=== PATIENT | female | born 1955 | race American Indian/Alaskan Native ===

== ENCOUNTER 2018-04-14 18:12 | Emergency (ER) | payer MEDICARE, OTHER ==
[2018-04-14 18:19] VITALS: BP 100/63
--- NOTE | 2018-04-14 18:21 | EDM.PDOC ---
ED HPI GENERAL MEDICAL PROBLEM - General Chief Complaint: Lower Extremity Injury/Pain Stated Complaint: FELL ON BOTH KNEES [id number] Time Seen by Provider: 04/14/18 18:20 Source of Information: Reports: Patient, Old Records, RN, RN Notes Reviewed History Limitations: Reports: No Limitations - History of Present Illness INITIAL COMMENTS - FREE TEXT/NARRATIVE: C/O fell forward from 3rd step to floor at home while doing laundry, with c/o pain and injury to B/L knees L>R, Rt shoulder, and mid-thoracic back. Denies head injury, neck pain, LOC, or any other injury. 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 shoulder pains. Pt was able to get up with assist. after the fall and took a "muscle relaxer" and a hydrocodone with minimal relief. Pt denies any previous fractures or surgeries to the injured areas. 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) Bilateral Knee Pain Score (Numeric/FACES): 6 Right Shoulder Pain Score (Numeric/FACES): 6 Upper Back Pain Score (Numeric/FACES): 6 Right Hip Pain Score (Numeric/FACES): 6 - Related Data Allergies Allergy/AdvReac Type Severity Reaction Status Date / Time ceftriaxone sodium Allergy Cannot Verified 07/27/15 07:21 [From Rocephin] Remember doxycycline Allergy Cannot Verified 07/27/15 07:21 Remember Penicillins Allergy Cannot Verified 07/27/15 07:21 Remember Sulfa (Sulfonamide Allergy Cannot Verified 07/27/15 07:21 Antibiotics) Remember Home Meds: Home Meds Albuterol [Proventil HFA] 2 puff INH BID PRN 03/01/15 [History] Hydrocodone/Acetaminophen [Hydrocodone-Acetaminophen 5-325] 1 tab PO Q6HR PRN [History] tiZANidine [Zanaflex] 4 mg PO Q8H 04/27/15 [History] Ascorbic Acid 250 mg PO DAILY 04/28/15 [History] Azelastine [Astelin Nasal Soln] 2 inhalation SWATI BID 04/28/15 [History] Cholecalciferol (Vitamin D3) [Vitamin D3] 500 units PO DAILY 04/28/15 [History] Fluticasone Propionate [Flonase] 1 spray INH BEDTIME 04/28/15 [History] Lidocaine 5% [Lidoderm 5%] 700 mg TOP Q24H 04/28/15 [History] diphenhydrAMINE [Benadryl] 25 mg PO BEDTIME PRN 04/28/15 [History] Docusate Sodium/Sennosides [Senna Plus] 1 tab PO BID PRN #30 tablet 04/30/15 [Rx ] Hydrocortisone [Hydrocortisone 1% Crm] 30 gm TOP BID PRN #1 tube 04/30/15 [Rx] Past Medical History - Past Health History Medical/Surgical History: Denies Medical/Surgical History HEENT History: Reports: Allergic Rhinitis Other HEENT History: wears glasses Respiratory History: Reports: Asthma 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 ED EXAM, GENERAL - Physical Exam Exam: See Below Exam Limited By: No Limitations General Appearance: Alert, No Apparent Distress, Obese Eye Exam: Bilateral Eye: EOMI, Normal Inspection, PERRL Ears: Normal External Exam, Hearing Grossly Normal Nose: Normal Inspection, Normal Mucosa, No Blood Throat/Mouth: Normal Inspection, Normal Lips, Normal Voice, No Airway Compromise Head: Atraumatic, Normocephalic Neck: Normal Inspection, Supple, Non-Tender, Full Range of Motion Respiratory/Chest: No Respiratory Distress, Lungs Clear, No Accessory Muscle Use , Chest Non-Tender, Decreased Breath Sounds Cardiovascular: Normal Peripheral Pulses, Regular Rate, Rhythm GI/Abdominal: Normal Bowel Sounds, Soft, Non-Tender, Other (benign obese abdomen ) (Female) Exam: Deferred Rectal (Female) Exam: Deferred Back Exam: Decreased Range of Motion (due to pain), Muscle Spasm (throacic paraspinal), Paraspinal Tenderness (mid-thoracic), Vertebral Tenderness (mid- thoracic). No: CVA Tenderness (L), CVA Tenderness (R) Extremities: Normal Capillary Refill, Pedal Edema (trace B/L non-pitting pedal edema, chronic/stable per pt), Arm Pain (Rt shoulder with no visible swelling, deformity or bruising, limited ROM due to pain; skin is intact), Leg Pain (B/L knees with slight soft tissue swelling, faint bruising, generalized tenderness, decreased ROM due to pain; skin is intact), Other (Rt hip tender to palpation, ROM limited due to pain, no visible bruising or deformity; skin is intact). No : Rica's Sign Neurological: Alert, Oriented, CN II-XII Intact, Normal Cognition, Normal Gait, No Motor/Sensory Deficits Psychiatric: Normal Affect, Normal Mood Skin Exam: Warm, Dry, Intact, No Rash Course - Vital Signs Last Recorded V/S: Last Vital Signs Temp 36.4 C 04/14/18 18:18 Pulse 72 04/14/18 18:18 Resp 18 04/14/18 18:18 BP 100/63 04/14/18 18:18 Pulse Ox 98 04/14/18 18:18 - Orders/Labs/Meds Orders: Active Orders 24 hr Category Date Time Status Hip Min 2V or 3V Rt [CR] Stat Exams 04/14/18 18:38 Taken Knee 3V Lt [CR] Urgent Exams 04/14/18 18:21 Taken Knee 3V Rt [CR] Urgent Exams 04/14/18 18:21 Taken Shoulder Comp Rt [CR] Urgent Exams 04/14/18 18:21 Taken Thoracic Spine 2V [CR] Urgent Exams 04/14/18 18:21 Taken - Radiology Interpretation Free Text/Narrative:: X-ray B/L knees: no acute fractures, significant OA changes with spurring and joint space narrowing; see Rad. report. X-ray Rt hip: no acute fracture, see Rad. report. X-ray Rt shoulder: no fracture or dislocation, see Rad. report. X-ray T-spine: no acute fractures or compression of vert. bodies, chronic degenerative changes; see Rad. report. Departure - Departure Time of Disposition: 19:21 Disposition: Home, Self-Care 01 Condition: Fair Clinical Impression: Fall (on) (from) other stairs and steps, initial encounter, Strain of muscle and tendon of back wall of thorax, initial encounter Contusion of knee Qualifiers: Encounter type: initial encounter Laterality: unspecified laterality Qualified Code(s): S80.00XA - Contusion of unspecified knee, initial encounter Contusion of right hip Qualifiers: Encounter type: initial encounter Qualified Code(s): S70.01XA - Contusion of right hip, initial encounter Sprain of right shoulder Qualifiers: Encounter type: initial encounter Shoulder sprain type: unspecified sprain Qualified Code(s): S43.401A - Unspecified sprain of right shoulder joint, initial encounter - Discharge Information Instructions: Contusion, Muscle Strain, [id number], Joint Pain, [id number] , Osteoarthritis Referrals: Enrique Lemos MD [Primary Care Provider] - Forms: ED Department Discharge Additional Instructions: Take your Hydrocodone and muscle relaxer as prescribed. Use moist heat and ice packs as needed for pain. Use a walker for stability until pain improves. Follow up in clinic if not improving as expected in 7 to 10 days. - My Orders Last 24 Hours: My Active Orders 04/14/18 18:21 Knee 3V Lt [CR] Urgent Knee 3V Rt [CR] Urgent Shoulder Comp Rt [CR] Urgent Thoracic Spine 2V [CR] Urgent 04/14/18 18:38 Hip Min 2V or 3V Rt [CR] Stat - Assessment/Plan Last 24 Hours: My Active Orders 04/14/18 18:21 Knee 3V Lt [CR] Urgent Knee 3V Rt [CR] Urgent Shoulder Comp Rt [CR] Urgent Thoracic Spine 2V [CR] Urgent 04/14/18 18:38 Hip Min 2V or 3V Rt [CR] Stat
== END 2018-04-14 19:30 | disposition home or self-care (01) ==
LOC: DL.ED 18:12
DX: S29.012A Strain of muscle and tendon of back wall of thorax, initial encounter (principal); S43.401A Unspecified sprain of right shoulder joint, initial encounter; S70.01XA Contusion of right hip, initial encounter; S80.02XA Contusion of left knee, initial encounter; S80.01XA Contusion of right knee, initial encounter; W10.9XXA Fall (on) (from) unspecified stairs and steps, initial encounter; J45.909 Unspecified asthma, uncomplicated; Z79.899 Other long term (current) drug therapy; Z88.1 Allergy status to other antibiotic agents; Z88.0 Allergy status to penicillin; Z88.2 Allergy status to sulfonamides; Z88.8 Allergy status to other drugs, medicaments and biological substances
CPT/HCPCS: 72070; 73030-RT; 73562-LT; 73562-RT; 99283; 99284

== ENCOUNTER 2018-04-26 05:06 | Emergency (ER) | payer MEDICARE, OTHER ==
--- NOTE | 2018-04-26 05:16 | EDM.PDOC ---
<Tommy Trinidad - Last Filed: 04/26/18 06:53> ED HPI GENERAL MEDICAL PROBLEM - General Chief Complaint: Cardiovascular Problem Stated Complaint: HEART [id number] Time Seen by Provider: 04/26/18 05:14 Source of Information: Reports: Patient History Limitations: Reports: No Limitations - History of Present Illness INITIAL COMMENTS - FREE TEXT/NARRATIVE: sudden onset hear racing and jaw locking up sensation, denies chest pain/SOB. states never had heart problems before. Sx occurred while playing [employer]. Oral/Mouth Pain Score (Numeric/FACES): 3 - Related Data Allergies Allergy/AdvReac Type Severity Reaction Status Date / Time ceftriaxone sodium Allergy Cannot Verified 04/26/18 05:35 [From Rocephin] Remember doxycycline Allergy Cannot Verified 04/26/18 05:35 Remember Sulfa (Sulfonamide Allergy Cannot Verified 04/26/18 05:35 Antibiotics) Remember Home Meds: Home Meds Albuterol [Proventil HFA] 2 puff INH BID PRN 03/01/15 [History] Hydrocodone/Acetaminophen [Hydrocodone-Acetaminophen 5-325] 1 tab PO Q6HR PRN [History] tiZANidine [Zanaflex] 4 mg PO Q8H 04/27/15 [History] Ascorbic Acid 250 mg PO DAILY 04/28/15 [History] Azelastine [Astelin Nasal Soln] 2 inhalation SWATI BID 04/28/15 [History] Cholecalciferol (Vitamin D3) [Vitamin D3] 500 units PO DAILY 04/28/15 [History] Fluticasone Propionate [Flonase] 1 spray INH BEDTIME 04/28/15 [History] Lidocaine 5% [Lidoderm 5%] 700 mg TOP Q24H 04/28/15 [History] diphenhydrAMINE [Benadryl] 25 mg PO BEDTIME PRN 04/28/15 [History] Docusate Sodium/Sennosides [Senna Plus] 1 tab PO BID PRN #30 tablet 04/30/15 [Rx ] Hydrocortisone [Hydrocortisone 1% Crm] 30 gm TOP BID PRN #1 tube 04/30/15 [Rx] Past Medical History - Past Health History Medical/Surgical History: Denies Medical/Surgical History HEENT History: Reports: Allergic Rhinitis Other HEENT History: wears glasses Respiratory History: Reports: Asthma 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 ED EXAM, GENERAL - Physical Exam Exam: See Below Exam Limited By: No Limitations General Appearance: Alert, WD/WN, Anxious, Mild Distress Ears: Hearing Grossly Normal Throat/Mouth: Normal Voice, No Airway Compromise Head: Atraumatic Neck: Non-Tender, Full Range of Motion Respiratory/Chest: No Respiratory Distress Cardiovascular: Regular Rate, Rhythm GI/Abdominal: Soft, Non-Tender Neurological: Alert, Oriented, Normal Cognition, Normal Gait, No Motor/Sensory Deficits Psychiatric: Anxious Skin Exam: Warm, Dry, Normal Color Lymphatic: No Adenopathy Course - Vital Signs Last Recorded V/S: Last Vital Signs Temp 36.5 C 04/26/18 05:12 Pulse 67 04/26/18 05:12 Resp 18 04/26/18 05:12 BP 148/60 H 04/26/18 05:12 Pulse Ox 100 04/26/18 05:12 - Orders/Labs/Meds Orders: Active Orders 24 hr Category Date Time Status EKG Documentation Completion [RC] STAT Care 04/26/18 05:13 Active Labs: Laboratory Tests 04/26/18 04/26/18 04/26/18 Range/Units 05:32 05:32 08:36 WBC 7.4 (5.0-10.0) 10^3/uL RBC 4.79 (4.2-5.4) 10^6/uL Hgb 14.5 D (12.0-16.0) g/dL Hct 43.7 (37.0-47.0) % MCV 91.2 D (80-100) fL MCH 30.3 (27.0-34.0) pg MCHC 33.2 (33.0-35.0) g/dL Plt Count 278 (150-450) 10^3/uL Neut % (Auto) 73.5 (42.2-75.2) % Lymph % (Auto) 14.3 L (20.5-50.1) % [place] % (Auto) 8.3 H (2-8) % Eos % (Auto) 3.4 H (1.0-3.0) % Baso % (Auto) 0.5 (0.0-1.0) % Sodium 137 (135-145) mmol/L Potassium 4.7 (3.6-5.0) mmol/L Chloride 105 (101-111) mmol/L Carbon Dioxide 26.0 (21.0-31.0) mmol/L Anion Gap 10.7 BUN 19 H (7-18) mg/dL Creatinine 1.0 (0.6-1.3) mg/dL Est Cr Clr Drug Dosing 53.16 mL/min Estimated GFR (MDRD) 56 BUN/Creatinine Ratio 19.00 Glucose 110 H (74-105) mg/dL Calcium 9.5 (8.4-10.2) mg/dl Total Bilirubin 0.3 (0.2-1.0) mg/dL AST 19 (10-42) IU/L ALT 15 (10-60) IU/L Alkaline Phosphatase 82 (42-121) IU/L Troponin I < 0.02 < 0.02 (0.00-0.02) ng/ml Total Protein 7.5 (6.7-8.2) g/dl Albumin 3.9 (3.2-5.5) g/dl Globulin 3.6 Albumin/Globulin Ratio 1.08 Meds: Medications Discontinued Medications Generic Name Dose Route Start Last Admin Trade Name Junior PRN Reason Stop Dose Admin Lorazepam 1 mg 04/26/18 05:59 04/26/18 06:09 Ativan IVPUSH 04/26/18 06:00 Not Given ONETIME ONE Lorazepam 1 mg 04/26/18 06:00 04/26/18 06:08 Ativan PO 04/26/18 06:01 1 mg ONETIME ONE Administration - Re-Assessments/Exams Free Text/Narrative Re-Assessment/Exam: 04/26/18 06:45 results discussed with pt who still feels same s/p ativan. states feels like there is a spasm going from back of neck to jaw almost like how her jaw chatters during winter but her jaws are not chattering. Departure - Departure Disposition: Home, Self-Care 01 Clinical Impression: Chest pain, non-cardiac Instructions: Nonspecific Chest Pain, [id number] Forms: ED Department Discharge Additional Instructions: Recheck primary care provider in the next 4-6 days if not improving sooner if worse. May use your hydrocodone for pain as well. <Alex Hinds - Last Filed: 04/26/18 09:13> Departure - Departure Time of Disposition: 09:11
[2018-04-26] MEDS ORDERED: LORazepam 2 MG/ML Syringe IVPUSH ONE (05:59)
[2018-04-26] MEDS ORDERED: LORazepam 1 MG Tab PO ONE (06:00)
[2018-04-26 06:26] LABS: ANION GAP 10.7; CHLORIDE,CL 105 mmol/L (101-111); SODIUM,NA 137 mmol/L (135-145)
[2018-04-26 09:23] VITALS: BP 150/68
--- NOTE | 2018-04-28 07:25 | EKG ---
04/26/2018- [address] - EKG per my reading, shows sinus rhythm at the rate of 60. [facility] /[id number]
== END 2018-04-26 09:30 | disposition home or self-care (01) ==
LOC: DL.ED 05:06
DX: R07.89 Other chest pain (principal); Z88.1 Allergy status to other antibiotic agents; Z88.2 Allergy status to sulfonamides; Z79.899 Other long term (current) drug therapy
CPT/HCPCS: 36415; 71045; 80053; 84484; 85025; 93005; 93010; 99285; A9270; 99283

== ENCOUNTER 2021-12-20 08:05 | Emergency (ER) | payer MEDICARE, OTHER ==
[2021-12-20 08:34] VITALS: BP 122/54; PULSE 69
[2021-12-20 09:09] LABS: CHLORIDE,CL 107 mmol/L (98-107); SODIUM,NA 140 mmol/L (136-145)
[2021-12-20 09:44] LABS: AMPHETAMINES,URINE NEGATIVE (NEGATIVE); BARBITURATES,URINE NEGATIVE (NEGATIVE); BENZODIAZEPINE,URINE NEGATIVE (NEGATIVE); MDMA (ECSTASY), URINE NEGATIVE (NEGATIVE); METHADONE,URINE NEGATIVE (NEGATIVE); METHAMPHETAMINES,URINE NEGATIVE (NEGATIVE); OPIATES,URINE POSITIVE (NEGATIVE); OXYCODONE,URINE NEGATIVE (NEGATIVE); PHENCYCLIDINE,URINE NEGATIVE (NEGATIVE); TCA,URINE NEGATIVE (NEGATIVE)
[2021-12-20 10:25] LABS: CORONAVIRUS COVID-19 NAA NEGATIVE (NEGATIVE); RESPIRATORY SYNCYTIAL VIR NAA NEGATIVE (NEGATIVE)
== END 2021-12-20 10:39 | disposition home or self-care (01) ==
LOC: DL.ED 08:05
DX: J18.9 Pneumonia, unspecified organism (principal); J45.909 Unspecified asthma, uncomplicated; E66.9 Obesity, unspecified; Z68.43 Body mass index [BMI] 50.0-59.9, adult; Z88.1 Allergy status to other antibiotic agents; Z88.2 Allergy status to sulfonamides; Z20.822 Contact with and (suspected) exposure to COVID-19
CPT/HCPCS: 0241U; 36415; 71045; 80053; 80305-QW; 81003; 82150; 83605; 83690; 83735; 83880; 84484; 85025; 86140; 93005; 99285-25

== ENCOUNTER 2024-08-15 00:58 | Emergency (ER) | payer MEDICARE, OTHER ==
[2024-08-15] MEDS ORDERED: Sodium Chloride 0.9% 10 ML Syringe FLUSH PRN (01:35)
[2024-08-15] MEDS: Ketorolac 30 MG/ML SDV IVPUSH ONE (01:45)
[2024-08-15] MEDS: Metoclopramide 10 MG/2 ML SDV IVPUSH ONE (01:46)
[2024-08-15] MEDS: diphenhydrAMINE 50 MG/ML SDV IVPUSH ONE (01:46)
[2024-08-15 02:32] VITALS: BP 133/86; PULSE 80
== END 2024-08-15 02:40 | disposition home or self-care (01) ==
LOC: DL.ED 00:58
DX: G44.209 Tension-type headache, unspecified, not intractable (principal); G43.919 Migraine, unspecified, intractable, without status migrainosus; J45.909 Unspecified asthma, uncomplicated; E66.9 Obesity, unspecified; F17.210 Nicotine dependence, cigarettes, uncomplicated; Z90.710 Acquired absence of both cervix and uterus; Z86.16 Personal history of COVID-19; Z88.1 Allergy status to other antibiotic agents; Z88.2 Allergy status to sulfonamides; Z88.8 Allergy status to other drugs, medicaments and biological substances; Z79.51 Long term (current) use of inhaled steroids; Z79.899 Other long term (current) drug therapy
CPT/HCPCS: 96374; 96375; 99283; 99284; J1200; J1885; J2765

== ENCOUNTER 2024-08-30 19:04 | Emergency (ER) | payer MEDICARE, OTHER ==
[2024-08-30] MEDS ORDERED: Sodium Chloride 0.9% 10 ML Syringe FLUSH PRN (19:36)
[2024-08-30 20:00] LABS: BASOPHILS PERCENT AUTO 0.5 % (0.0-1.0); EOSINOPHILS PERCENT AUTO 1.5 % (1.0-3.0); HEMATOCRIT 40.7 % (37.0-47.0); HEMOGLOBIN 13.4 g/dL (12.0-16.0); LYMPHOCYTES PERCENT AUTO 11.8 % (20.5-50.1); MEAN CORPUSCULAR HEMOGLOBIN 31.2 pg (27.0-34.0); MEAN CORPUSCULAR HGB CONC 32.9 g/dL (33.0-35.0); MEAN CORPUSCULAR VOLUME 94.9 fL (80-100); MONOCYTES PERCENT AUTO 7.8 % (2-8); NEUTROPHILS PERCENT AUTO 78.4 % (42.2-75.2); PLATELET COUNT,PLT 306 10^3/uL (150-450); RED BLOOD CELL COUNT 4.29 10^6/uL (4.2-5.4); WHITE BLOOD CELL COUNT,WBC 8.7 10^3/uL (5.0-10.0)
[2024-08-30] MEDS: diphenhydrAMINE 50 MG/ML SDV IVPUSH ONE (20:19)
[2024-08-30] MEDS: Lactated Ringers 1,000 ML IV SCH (20:19)
[2024-08-30] MEDS: Metoclopramide 10 MG/2 ML SDV IVPUSH ONE (20:19)
[2024-08-30] MEDS: SUMAtriptan 6 MG/0.5 ML SDV SUBCUT ONE (20:19)
[2024-08-30 20:23] LABS: ALBUMIN 3.4 g/dL (3.4-5.0); ANION GAP 12.5 mEq/L (7-13); BILIRUBIN TOTAL 0.3 mg/dL (0.2-1.0); BUN/CREATININE RATIO 20.2 (No establ ref range); CALCIUM 8.9 mg/dL (8.5-10.1); CREATININE 1.09 mg/dL (0.55-1.02); EST CRCL DRUG DOSING (CG) 46.24 mL/min; MAGNESIUM 2.2 mg/dL (1.8-2.4); POTASSIUM,K 4.5 mmol/L (3.5-5.1); PROTEIN TOTAL,TP 6.9 g/dL (6.4-8.2)
[2024-08-30] MEDS ORDERED: Naloxone 2 MG/2 ML Syringe IVPUSH PRN (21:04)
[2024-08-30] MEDS: Ondansetron 4 MG/2 ML SDV IVPUSH ONE (21:15)
[2024-08-30] MEDS: fentaNYL 100 MCG/2 ML SDV IVPUSH ONE (21:15)
[2024-08-30] MEDS: Dexamethasone 4 MG/ML SDV IVPUSH ONE (21:15)
[2024-08-30 21:40] VITALS: BP 127/61; PULSE 81
== END 2024-08-30 22:25 | disposition home or self-care (01) ==
LOC: DL.ED 19:04
DX: G43.019 Migraine without aura, intractable, without status migrainosus (principal); R11.2 Nausea with vomiting, unspecified; J45.909 Unspecified asthma, uncomplicated; E66.9 Obesity, unspecified; Z90.710 Acquired absence of both cervix and uterus; Z88.1 Allergy status to other antibiotic agents; Z88.2 Allergy status to sulfonamides; Z88.5 Allergy status to narcotic agent; Z88.8 Allergy status to other drugs, medicaments and biological substances; Z79.51 Long term (current) use of inhaled steroids; Z79.899 Other long term (current) drug therapy; Z68.38 Body mass index [BMI] 38.0-38.9, adult
CPT/HCPCS: 36415; 70450; 80053; 83690; 83735; 84484; 85025; 93005; 96361; 96372; 96374; 96375; 99284; J1100; J1200; J2405; J2765; J3010; J3030; J7120